=== PATIENT | female | born 1975 | race Caucasian/White ===

== ENCOUNTER 2019-01-04 19:57 | Emergency (ER) | payer MEDICAID ==
[~2019-01-04] VITALS: Ht 165.1 cm; Wt 115.9 kg
[2019-01-04 20:16] VITALS: Ht 165.1 cm; Wt 115.9 kg
[2019-01-04] MEDS ORDERED: SYNTHROID25 MCG PO (20:18)
[2019-01-04] MEDS ORDERED: COZAAR25 MG PO (20:18)
[2019-01-04] MEDS ORDERED: EFFEXOR75 MG PO (20:18)
[2019-01-04] MEDS ORDERED: VITAMIN D31000 UNIT PO (20:18)
[2019-01-04 21:07] LABS: BASOPHILS 0.2 % (0-2); EOSINOPHILS 0.8 % (0-7); HEMATOCRIT 39.2 % (36.0-48.0); HEMOGLOBIN 12.6 g/dL (12-16); IMMATURE GRANULOCYTES 0.3 % (0-5); MCH 27.8 pg (26.0-34.0); MCHC 32.1 g/dL (31.0-37.0); MCV 86.3 fL (80.0-100.0); MEAN PLATELET VOLUME 10.3 fL (7.4-10.4); MONOCYTES 8.6 % (2-11); NEUTROPHILS 66.1 % (40-80); PLATELET COUNT 299 10x3/uL (130-400); RBC 4.54 10x6/uL (4.00-5.40); RDW 12.8 % (11.5-14.5); WBC 11.4 10x3/uL (4.8-10.8)
[2019-01-04] MEDS ORDERED: VIBRAMYCIN 100100 MG PO (21:47)
[2019-01-04] MEDS ORDERED: ALBUTEROL SULF8.5 GM INH (21:47)
[2019-01-04] MEDS ORDERED: PHENERGAN DM SYR5 ML PO (21:47)
[2019-01-04] MEDS ORDERED: TAMIFLU75 MG PO (21:47)
[2019-01-04 22:04] VITALS: BP 125/68
== END 2019-01-04 22:05 | disposition home or self-care (01) ==
LOC: D.ER 19:57
PROVIDERS: Family Medicine
DX: J40 Bronchitis, not specified as acute or chronic (principal); R09.89 Other specified symptoms and signs involving the circulatory and respiratory systems

== ENCOUNTER → 2020-04-30 12:33 | Outpatient (CLI) | payer MEDICAID ==
[2019-01-04 20:16] VITALS: BMI 42.5
[~2020-04-30 12:33] MED LIST: ALBUTEROL SULF8.5 GM INH; COZAAR25 MG PO; EFFEXOR75 MG PO; PHENERGAN DM SYR5 ML PO; SYNTHROID25 MCG PO; TAMIFLU75 MG PO; VIBRAMYCIN 100100 MG PO; VITAMIN D31000 UNIT PO
== END | disposition home or self-care (01) ==
LOC: D.MRI 04-14 11:30
PROVIDERS: ATTEND Anesthesiology
DX: M54.2 Cervicalgia (principal)